=== PATIENT | female | born 1930 | race African-American/Black ===

== ENCOUNTER 2018-05-08 11:15 | Emergency (ER) | payer OTHER ==
[~2018-05-08] VITALS: Ht 157.5 cm; Wt 49.9 kg
[~2018-05-08 11:15] MED LIST: ADALAT CC30 MG PO; ASPIR 8181 M1 PO; ASPIRIN81 M2 PO; COLACE100 MG PO; COLCRYS0.6 MG PO; COSOPT EYE DROPS5 ML OPHTHALMIC; HYDROCODONE-AP1 EAC6 PO; TRIAMCINOLONE 080 G3; VITAMIN B-1100 M1 PO; XALATAN2.5 ML OPHTHALMIC; ZANTAC 150MG T150 MG PO; ZOFRAN ODT4 MG PO
[2018-05-08] MEDS ORDERED: VOLTAREN GEL 1100 G2 TOP (13:10)
[2018-05-08 14:06] VITALS: BP 91/37
== END 2018-05-08 14:00 | disposition home or self-care (01) ==
LOC: ER 11:15
DX: M21.612 Bunion of left foot (principal); G30.9 Alzheimer's disease, unspecified; F02.80 Dementia in other diseases classified elsewhere, unspecified severity, without behavioral disturbance, psychotic disturbance, mood disturbance, and anxiety; K21.9 Gastro-esophageal reflux disease without esophagitis; I10 Essential (primary) hypertension; Z88.0 Allergy status to penicillin